=== PATIENT | female | born 1970 | race Caucasian/White ===

== ENCOUNTER → 2020-07-17 08:14 | Outpatient (CLI) | payer BC, SELFPAY ==
--- NOTE | ~2020-07-17 | MR_ITS ---
EXAMINATION: MR cervical spine wo con EXAM DATE: 07/17/2020 09:10 INDICATION: Left hand paresthesia, neck pain. TECHNIQUE: Multi-sequential, multiplanar MR images of the cervical spine were obtained without contra st. Axial T2, axial T2 MERGE sequence. Sagittal T1, T2, T2 fat saturation images also obtained. Th ere is no prior study for comparison. FINDINGS: There is mild disc disease C4-7. The vertebral bodies are aligned in the AP dimension. The spinal cord signal intensity and intrinsic morphology is normal. Cervicomedullary junction is normal in appearance. There are no suspicious marrow signal abnormalities. Paraspinal soft tissue is unrema rkable. Level by level evaluation: C2-C3: Disc does not extend beyond the endplate margin. Uncovertebral joint arthropathy: Mild left. Facet joint arthropathy: Mild bilateral. Neural foraminal stenosis: No stenosis. Central canal stenosis: No stenosis. C3-C4: Disc does not extend beyond the endplate margin. Uncovertebral joint arthropathy: Mild bilateral. Facet joint arthropathy: Mild to moderate bilateral. Neural foraminal stenosis: No stenosis. Central canal stenosis: No stenosis. C4-C5: There is a minimal diffuse disc bulge. Uncovertebral joint arthropathy: Mild to moderate left, mild right. Facet joint arthropathy: Mild to moderate left, mild right. Neural foraminal stenosis: Mild left. Central canal stenosis: No stenosis. C5-C6: There is a mild diffuse disc bulge. Uncovertebral joint arthropathy: Mild to moderate bilateral. Facet joint arthropathy: Mild to moderate bilateral. Neural foraminal stenosis: Mild to moderate right, mild left. Central canal stenosis: Mild. C6-C7: There is a mild diffuse disc bulge. Uncovertebral joint arthropathy: Moderate bilateral. Facet joint arthropathy: Mild to moderate bilateral. Neural foraminal stenosis: Moderate bilateral. Central canal stenosis: Mild. C7-T1: Disc does not extend beyond the endplate margin. Uncovertebral joint arthropathy: None. Facet joint arthropathy: Mild bilateral. Neural foraminal stenosis: No stenosis. Central canal stenosis: No stenosis. IMPRESSION: 1. C6-7 moderate bilateral neural foraminal stenosis. 2. Less spondylosis other levels. Reviewed, dictated and finalized at location B. P 3 ARMAMENT/ORDNANCE IMA TECHNICIAN
== END ==
PROVIDERS: PCP Family Medicine Adolescent Medicine; Visit Provider Physician Assistant
DX: R20.2 Paresthesia of skin (principal); M54.2 Cervicalgia
CPT/HCPCS: 72141

== ENCOUNTER 2021-06-05 21:23 | Observation (INO) | payer BC, SELFPAY ==
[2021-06-05] VITALS (7 sets, daily range): BP systolic 161–191; BP diastolic 93–159; PULSE 52–60; RESP 12–13; TEMP 36.7; O2SAT 99–100
--- NOTE | ~2021-06-05 | CT_ITS ---
EXAMINATION: CT brain wo con DATE: 06/06/2021 01:41 INDICATION: A couple syncopal episodes and fall. TECHNIQUE: Computed tomography (CT) of the head was performed without intravenous contrast. Sagittal and coronal reconstructions were performed. The mA was adjusted according to patient size. Iterative reconstruction technique was employed. The dose-length product was 605.33 mGy-cm. COMPARISON: None FINDINGS: No fracture. No acute intracranial hemorrhage, acute infarction or abnormal extra axial fluid collect ion. Ventricles are normal and symmetric. No mass/mass effect. The orbits, paranasal sinuses and mast oid air cells are normal. IMPRESSION: 1. Normal head CT. No fracture or acute intracranial process. Reviewed, dictated and finalized at location A. NG TEACHER
--- NOTE | ~2021-06-05 | XR_ITS ---
EXAMINATION: XR chest 2V DATE: 06/06/2021 02:32 INDICATION: Syncope. TECHNIQUE: frontal and lateral views of the chest were obtained. COMPARISON: None FINDINGS: The lungs are clear with no focal airspace opacities, pulmonary edema, pleural effusion or pneumothor ax. The cardiomediastinal silhouette is normal. Mild thoracic spondylosis. IMPRESSION: 1. No acute cardiopulmonary disease. Reviewed, dictated and finalized at location A. CTION PREVENTION SPECIALIST
--- NOTE | 2021-06-05 21:26 | ECG_ITS ---
Measurements Intervals [place] Rate: 55 P: 38 ND: 167 QRS: 76 QRSD: 85 T: 60 QT: 433 QTc: 417 Interpretive Statements SINUS BRADYCARDIA WITH SINUS ARRHYTHMIA BASELINE WANDER- V4 BORDERLINE ECG Electronically Signed On 06-06-2021 7:00:20 ENERGY MANAGER by Desean Shaw D.O.
--- NOTE | 2021-06-05 21:51 | ED.SYNCOPE ---
HPI - Syncope General Chief Complaint: Syncope Stated Complaint: syncopal episodes Time Seen by Provider: 06/05/21 21:32 Source: patient History of Present Illness HPI narrative: Patient passed out this evening. Reports she was putting soup into another container when she felt lightheaded and dizzy her with her so that she passed out and lowered her to the ground. EMS was contacted and patient initially was going to refuse transportation however symptoms returned She denies any chest pain or shortness of breath prior to the event. She does report feeling warm and nauseated. Is reports she did not strike her head on anything. Reports she feels a little bit nausea now but otherwise is feeling well. She denies any recent fevers, cough, congestion. She denies prior cardiac history she denies any recent hospitalizations prior history of DVTs, recent trauma. She reports she is an avid bike rider and has had noted any issues with physical activity. Related Data Allergies Allergy/AdvReac Type Severity Reaction Status Date / Time cefaclor Allergy Severe ITCHING Verified 06/05/21 21:34 Cephalosporins Allergy Mild Hives Verified 06/05/21 21:34 Sulfa (Sulfonamide Allergy Mild Hives Verified 06/05/21 21:34 Antibiotics) Review of Systems Review of Systems: CONSTITUTIONAL: Denies fever, chills, or sweats. EYES: Denies visual changes, redness, or discharge. ENT: Denies rhinorrhea, congestion, sore throat, or otalgia. CARDIOVASCULAR: Denies chest pain, palpitations, or edema. RESPIRATORY: Denies cough or dyspnea. GASTROINTESTINAL: Denies abdominal pain, vomiting, or diarrhea. GENITOURINARY: Denies dysuria or hematuria. SKIN: Denies rash or itching. MUSCULOSKELETAL: Denies back pain, joint pain, or myalgia. NEUROLOGIC: Denies headache, numbness, dizziness, or weakness. PSYCHIATRIC: Denies anxiety or depression. All systems reviewed & are unremarkable except as noted in HPI and below PMFSH Past Medical History Medical History (Updated 06/06/21 @ 02:14 by Lucas Mcfarland MD) Patient denies significant medical history Social History Social History (Updated 06/05/21 @ 21:53 by Lucas Mcfarland MD) Alcohol intake: current Exam Narrative: GENERAL: Well-appearing, well-nourished, and in no acute distress. HEAD: Normocephalic, atraumatic. EYES: PERRLA and EOMI. ENT: Nares clear, no rhinorrhea or epistaxis. Mucous membranes moist. NECK: Supple. No masses. No JVD CHEST: Clear to auscultation. No respiratory distress. No wheezes rales or rhonchi HEART: Regular rate and rhythm. No murmur heard. Normal peripheral pulses. ABDOMEN: Soft, nontender, nondistended, normal active bowel sounds. EXTREMITIES: Normal range of motion. No edema. SKIN: Warm, dry, no rash. NEURO: Cranial nerves II through XII are intact patient has 5 out of 5 strength in all extremities sensation intact to light touch in all extremities alert and oriented x3. PSYCH: Normal mood and affect. Course Reevaluation(s) Reevaluation #1: Patient is resting comfortably results reviewed with patient. Due to elevated troponin she was admitted for further monitoring. Case cussed with hospitalist team and cardiology team. Date: 06/06/21 Time: 02:00 Vital Signs Vital signs: Vital Signs Temperature 36.7 C 06/05/21 21:26 Pulse Rate 58 L 06/05/21 21:26 Respiratory Rate 12 06/05/21 21:26 Blood Pressure 177/100 H 06/05/21 21:26 Pulse Oximetry 99 06/05/21 21:26 Temperature 36.7 C 06/05/21 21:26 Pulse Rate 47 L 06/06/21 06:45 Respiratory Rate 11 L 06/06/21 06:45 Blood Pressure 158/88 H 06/06/21 06:45 Pulse Oximetry 96 06/06/21 06:45 MDM - Syncope MDM Narrative Medical decision making narrative: H&P as above, vss, pt looks clinically well, exam reassuring no focal neurological deficits cardiac exam was unremarkable, labs initially reassuring delta troponin was elevated, img unremarkable, additional labs/img considered. Symptoms r
[2021-06-05 21:59] LABS: Basophils Absolute Auto 0.1 K/mm3 (0.0-0.1); Basophils Percent Auto 0.9 % (0.2-1.2); Eosinophils Absolute Auto 0.2 K/mm3 (0-0.3); Eosinophils Percent Auto 3.3 % (0-4.4); Hematocrit 41.8 % (37.0-47.0); Hemoglobin 14.7 g/dL (12.0-15.0); Immature Granulocyte Absolute 0.02 K/mm3 (0.00-0.031); Immature Granulocyte Percent A 0.4 % (0-0.5); Lymphocytes Absolute Auto 2.08 K/mm3 (0.9-3.2); Lymphocytes Percent Auto 37.6 % (18.3-44.2); Mean Corpuscular HGB Conc 35.2 g/dl (32-36); Mean Corpuscular Hemoglobin 32.2 pg (26-34); Mean Corpuscular Volume 91.5 fl (80-100); Mean Platelet Volume 9.5 fl (7.4-10.4); Monocytes Absolute Auto 0.5 K/mm3 (0.1-0.6); Monocytes Percent Auto 8.9 % (2.6-8.5); Neutrophils Absolute Auto 2.7 K/mm3 (1.3-6.7); Neutrophils Percent Auto 48.9 % (45.5-73.1); Platelet Count Result 185 k/mm3 (150-375); Red Blood Count 4.57 M/mm3 (4.2-5.4); Red Cell Distribution Width 11.9 % (11.5-14.5); White Blood Count 5.5 K/mm3 (4.5-10.0)
[2021-06-05 22:11] LABS: Alanine Aminotransferase 22 U/L (4-35); Albumin Level 4.5 g/dL (3.5-5.1); Alkaline Phosphatase 71 U/L (38-126); Anion Gap 6 mmol/L (8-16); Aspartate Amino Transferase 33 U/L (14-36); Bilirubin,Total 0.5 mg/dL (0.2-1.3); Blood Urea Nitrogen 19 mg/dL (7-17); Calcium 9.7 mg/dL (8.4-10.2); Carbon Dioxide 32 mmol/L (22-30); Chloride 97 mmol/L (98-107); Estimated CRCL calculation 83 ml/min; Estimated Glomerular Filt Rate > 60; Glucose 106 mg/dL (65-110); Potassium 3.9 mmol/L (3.4-5.0); Sodium 135 mmol/L (137-145)
[2021-06-05 22:23] LABS: Troponin I < 0.012 ng/mL (0.000-0.034)
[2021-06-05] MEDS: SODIUM CHLORIDE 0.9% IV 1,000 ML 999 ML IV CONT (23:04)
[2021-06-05] MEDS: ONDANSETRON INJ 4 MG/2 ML VIAL IV PUSH (23:52)
[2021-06-06] VITALS (60 sets, daily range): BP systolic 129–192; BP diastolic 77–109; PULSE 38–65; RESP 9–20; O2SAT 94–100; BMI 58.5
--- NOTE | 2021-06-06 | ECHO_ITS ---
Patient Info Name: Ammy Hastings Age: 50 years : 1970 Gender: Female Ht: 70 in Wt: 205 lbs BSA: 2.17 m2 HR: 49 bpm BP: 158 / 88 mmHg Heart Rhythm: Sinus Rhythm, Bradycardia Technical Quality: Good Exam Date: 06/06/2021 8:57 AM Exam Location: [facility] Pulmonary Exam Room: ED 9 Patient Status: Outpatient Admit Date: 06/06/2021 Staff Ordering Physician: Lucas Mcfarland MD Manager Cosmetic: Faiza Belle RDCS Attending Provider: Susan Wilkinson PA-C Referring Physician: Bartolo ELI; Exam Type: CA echo doppler color flow Study Info Indications - SYNCOPE Complete two-dimensional, color flow and Doppler transthoracic echocardiogram is performed. Summary 1. Complete two-dimensional, color flow and Doppler transthoracic echocardiogram is performed. 2. Left ventricular chamber dimension is normal. 3. Left ventricular systolic function is normal, estimated at 65-70%. 4. There is no increased left ventricular wall thickness. 5. The left ventricular diastolic function is normal. 6. Right ventricular chamber dimension is normal. 7. Right ventricular systolic function is normal. 8. Borderline mild right ventricular hypertrophy. 9. Right atrial chamber dimension is mildly enlarged. 10. Left atrial chamber dimension is mildly enlarged. 11. There is trace tricuspid valve regurgitation. 12. No pulmonary hypertension, estimated pulmonary arterial systolic pressure is 27 mmHg. Left Ventricle Left ventricular chamber dimension is normal. Left ventricular systolic function is normal, estimated at 65-70%. There is no increased left ventricular wall thickness. The left ventricular diastolic function is normal. Right Ventricle Right ventricular chamber dimension is normal. Right ventricular systolic function is normal. Borderline mild right ventricular hypertrophy. Left Atria Left atrial chamber dimension is mildly enlarged. Right Atria Right atrial chamber dimension is mildly enlarged. Aortic Valve The aortic valve is not well visualized. There is no aortic valve stenosis. There is no aortic valve regurgitation. Pulmonic Valve The pulmonic valve is not well visualized. Mitral Valve The mitral valve has normal leaflets. There is trace mitral valve regurgitation. Tricuspid Valve The tricuspid valve leaflets are normal. There is trace tricuspid valve regurgitation. No pulmonary hypertension, estimated pulmonary arterial systolic pressure is 27 mmHg. Pericardium/Pleural The pericardium appears normal. There is no pericardial effusion. Inferior Vena Cava Normal inferior vena cava with <50% collapse upon inspiration consistent with elevated right atrial pressure, 10 mmHg. Aorta The aortic root size at the sinus of Valsalva is normal. Left Ventricular Outflow Tract Name Value Normal LVOT 2D LVOT Diameter 2.0 cm LVOT Doppler LVOT Peak Gradient 10 mmHg LVOT Mean Gradient 5 mmHg LVOT VTI 35 cm LVOT VTI/AV VTI Ratio 0.9 LVOT Stroke Volume
[2021-06-06 01:13] LABS: Troponin I 0.048 ng/mL (0.000-0.034)
[2021-06-06 02:40] LABS: Partial Thromboplastin Time 29.7 SECONDS (22.3-36.8); Prothrombin Time 12.6 Seconds (11.1-14.7)
--- NOTE | 2021-06-06 03:17 | ECG_ITS ---
Measurements Intervals [place] Rate: 43 P: 1 WA: 183 QRS: 98 QRSD: 86 T: 53 QT: 472 QTc: 403 Interpretive Statements SINUS BRADYCARDIA WITH SINUS ARRHYTHMIA BASELINE ARTIFACT- II, III, AVR, AVF, V3-V6 BORDERLINE ECG Electronically Signed On 06-06-2021 7:02:23 STEAM PRESS TENDER by Desean Shaw D.O.
--- NOTE | 2021-06-06 03:17 | PC.NURSE ---
Pt reports new onset chest tightness rated a 2/10 for the past hour. EDP Dr Mcfarland made aware, EKG obtained per VORB.
--- NOTE | 2021-06-06 03:48 | PC.NURSE ---
Spoke to Dr Braun - hospitalist at this time to report chest tightness and repeat EKG. Discussed POC/medications - states she will put med orders in.
[2021-06-06] MEDS: ASPIRIN 81 MG CHEWABLE TABLET 324 MG PO (03:57)
[2021-06-06] MEDS: NITROGLYCERIN SL 0.4 MG TABLET SUBLINGUAL (03:58)
--- NOTE | 2021-06-06 03:58 | PC.NURSE ---
Pt given 1 SL nitro tab for chest tightness rated a 1/10 currently per hospitalist LALO.
[2021-06-06] MEDS: lisinopriL 20 MG TABLET PO ×2 (04:02→09:48)
--- NOTE | 2021-06-06 04:03 | PC.NURSE ---
Pt states she has no chest tightness following 1 SL nitro tab.
[2021-06-06 04:21] LABS: Troponin I 0.065 ng/mL (0.000-0.034)
--- NOTE | 2021-06-06 07:27 | PC.NURSE ---
ordered pt breakfast tray
[2021-06-06 07:30] LABS: Troponin I 0.058 ng/mL (0.000-0.034)
--- NOTE | 2021-06-06 09:57 | PC.NURSE ---
Dr. Last aware of pt being boarded in the ED, and need for consult.
[2021-06-06 10:35] LABS: Basophils Absolute Auto 0.1 K/mm3 (0.0-0.1); Basophils Percent Auto 0.9 % (0.2-1.2); Eosinophils Absolute Auto 0.1 K/mm3 (0-0.3); Eosinophils Percent Auto 1.6 % (0-4.4); Hematocrit 41.3 % (37.0-47.0); Hemoglobin 14.3 g/dL (12.0-15.0); Immature Granulocyte Absolute 0.01 K/mm3 (0.00-0.031); Immature Granulocyte Percent A 0.2 % (0-0.5); Lymphocytes Absolute Auto 1.48 K/mm3 (0.9-3.2); Lymphocytes Percent Auto 27.1 % (18.3-44.2); Mean Corpuscular HGB Conc 34.6 g/dl (32-36); Mean Corpuscular Hemoglobin 32.4 pg (26-34); Mean Corpuscular Volume 93.4 fl (80-100); Mean Platelet Volume 10.1 fl (7.4-10.4); Monocytes Absolute Auto 0.6 K/mm3 (0.1-0.6); Monocytes Percent Auto 11.3 % (2.6-8.5); Neutrophils Absolute Auto 3.2 K/mm3 (1.3-6.7); Neutrophils Percent Auto 58.9 % (45.5-73.1); Platelet Count Result 189 k/mm3 (150-375); Red Blood Count 4.42 M/mm3 (4.2-5.4); Red Cell Distribution Width 11.9 % (11.5-14.5); White Blood Count 5.5 K/mm3 (4.5-10.0)
[2021-06-06 10:41] LABS: Alanine Aminotransferase 20 U/L (4-35); Alkaline Phosphatase 65 U/L (38-126); Anion Gap 6 mmol/L (8-16); Aspartate Amino Transferase 30 U/L (14-36); Bilirubin,Total 0.5 mg/dL (0.2-1.3); Blood Urea Nitrogen 17 mg/dL (7-17); Calcium 9.3 mg/dL (8.4-10.2); Carbon Dioxide 27 mmol/L (22-30); Chloride 105 mmol/L (98-107); Estimated CRCL calculation 83 ml/min; Estimated Glomerular Filt Rate > 60; Glucose 89 mg/dL (65-110); Potassium 4.1 mmol/L (3.4-5.0); Sodium 138 mmol/L (137-145)
--- NOTE | 2021-06-06 11:46 | PM.CNCAR ---
Assessment and Plan Assessment and plan (1) Syncope: Qualifiers: Syncope type: unspecified Qualified Code(s): R55 - Syncope and collapse Code(s): R55 - Syncope and collapse Status: Acute Assessment and Plan: Symptoms suggestive of vasovagal/neurocardiogenic etiology. Description as recalled per EMS with heart rate dropping to 32 beats per minute after patient stood up then suffering a brief syncopal episode once again suggestive of possible cardioinhibitory etiology. There is no documentation of orthostasis or hypotension. Patient relates a chronic history of bradycardia as she is an avid endurance cyclist. -Avoid dehydration and AV helder blocking agents. Precise contribution to initial syncopal episode unclear. Cannot entirely exclude transient asystole or severe bradycardia contribution as is suggested with available documentation. As asystole has not yet been documented is difficult to assess whether consideration for permanent pacemaker implantation may be warranted. Given elevated troponin and lack of clear anginal symptoms or ischemic EKG changes this points to a significant hemodynamic change which resulted in a loss of consciousness. My opinion it is far less likely she had an acute ischemic event profound enough to result in loss of consciousness transiently without other suggestive symptoms or electrocardiographic features. Furthermore, LV systolic function was normal without wall motion abnormalities. -given the degree of hypertension antihypertensive therapy is warranted. However, this is precarious given her presentation with syncope and caution should be exercised. She must avoid dehydration. She missed rise slowly from seated position to avoid risk for falls and injuries. Avoid alcohol, excessive caffeine. -I recommended an ischemic evaluation which may be performed on an outpatient basis given family history of premature atherosclerosis. -30 day application integration architect to assess for pathologic bradycardia, sinus arrest/asystole in association with syncope. Loop recorder implantation may be considered etiology remains left clear. We also discussed tilt-table testing as an outpatient for further clarification in this regard. We discussed potential serious complications from a syncope given circumstances. I have advised her to minimize driving as much as possible although without an absolute restriction. I would recommend she not return to work on Tuesday to ensure further stabilization over the weekend. She agrees. (2) Elevated troponin: Code(s): R77.8 - Other specified abnormalities of plasma proteins Status: Acute Assessment and Plan: Mild troponin elevation with a fairly rapid rise and fall without ischemic EKG changes. Although she has very minimal chest tightness she has been very active riding a bike without any limitation or change in activity tolerance or symptoms suggestive of angina. I believe this is a type 2 infarction not secondary to acute coronary syndrome and/or plaque rupture. (3) Hypertension: Code(s): I10 - Essential (primary) hypertension Status: Acute Assessment and Plan: Uncontrolled without evidence of orthostasis. Judicious improvement in her blood pressure close observation of tolerance prior to discharge would be recommended. Avoid AV helder blocking agents. (4) Bradycardia: Code(s): R00.1 - Bradycardia, unspecified Status: Acute Assessment and Plan: Sinus bradycardia attributed to her cardiovascular conditioning as an avid endurance cyclist. However, given her syncope suggestive of vasovagal/neurocardiogenic etiology and evidence more specifically supportive of a cardioinhibitory contribution this may in fact be somewhat problematic. Continue telemetry while hospitalized. Outpatient 30 day application integration architect. Patient agrees. Further recommendation to follow. Patient denies symptoms or evidence of obstructive sleep apnea. Ap
--- NOTE | 2021-06-06 16:08 | PM.IMHP ---
H&P: HPI History of Present Illness Date/Time: 06/06/21 16:08 this is a 50-year-old female patient who typically has a heart rate in the 40s and is typically asymptomatic is she is an avid bike rider and is very physically active. The patient stated that she had made some soup and she went to get a bolt but the soup in and she felt very lightheaded, dizzy and nauseated and felt like she was going to pass out. The patient stated that her caught her and lowered her to the ground. She denies hitting her head. When the patient awoke she noticed that her was on the phone with EMS. Initially the patient was going to refuse EMS. She denies any fever chills cough or congestion. She denies any cardiac history. Head CT was read as normal head CT no fracture acute intracranial process. No acute cardiopulmonary disease. The patient's heart rate has been in the upper 40s and lower 50s. Cardiology has been consulted. Patient only has a history of hypertension. I spoke with Dr. Guzman and he recommended that the patient stay at least 1 more night. Patient will not be able to get a heart monitor today and will need to wait for her 30 day heart monitor for tomorrow. Patient will also need a apnea link tonight however she denies any daytime sleepiness or excessive snoring. She is not overly obese either. She does not Fit the normal criteria of for somebody that would have obstructive sleep apnea however cardiology recommended that she have the apnea link study tonight. EKG was read as sinus Huan with sinus arrhythmia The patient's troponin initially undetectable and then it is 0.065 and 0.058 respectively. The patient is being admitted for observation status on the date of service of 06/06/2021 Chief Complaint: Syncopal episode Review of Systems Review of Systems: All systems reviewed & are unremarkable except as noted in HPI and below Constitutional: Constitutional: Reports as per HPI and Reports no additional constitutional complaints Eyes: Eyes: Reports as per HPI and Reports no additional eye complaints ENT: Reports system reviewed and no additional complaints, except as documented and Reports Normal hearing present Cardiovascular: Cardiovascular: Reports no additional cardiovascular complaints Respiratory: Respiratory: Reports no additional respiratory complaints and Reports no additional respiratory complaints Gastrointestinal: Gastrointestinal: Reports as per HPI and Reports no additional gastrointestinal complaints Musculoskeletal: Musculoskeletal: Reports no additional musculoskeletal complaints Integumentary/Breasts: Skin/Breast: Reports system reviewed and no additional complaints, except as docu and Reports as per HPI Neurologic: Reports system reviewed and no additional complaints, except as documented, Reports as per HPI and Reports Normal hearing present Psychiatric: Psychiatric: Reports no additional psychiatric complaints and Reports as per HPI Endocrine: Endocrine: Reports no additional endocrine complaints Hematologic/Lymphatic: Hematologic/Lymphatic: Reports no additional hematologic/lymphatic complaints Allergic/Immunologic: Allergic/Immunologic: Reports no additional allergic/immunologic complaints FOR[facility]LY [facility], [facility] Past Medical History Medical History Bradycardia Hypertension Patient denies significant medical history Surgical History Surgical History (Updated 06/06/21 @ 16:30 by Keyonna Akins NP) History of arthroscopy of left knee S/P ORIF (open reduction internal fixation) fracture Right wrist Family History Family History (Updated 06/06/21 @ 16:30 by Keyonna Akins NP) Mother Hypertension Father Hypertension Acute myocardial infarction Social History Social History (Updated 06/06/21 @ 16:34 by Keyonna Akins NP) Social History: The patient is and lives with her . She has 3 sons. One of the sons lives with her.
--- NOTE | 2021-06-06 23:34 | PC.NURSE ---
Report received from KACI Maloney. Assumed care of patient at this time.
[2021-06-07] VITALS (36 sets, daily range): BP systolic 129–154; BP diastolic 76–100; PULSE 35–66; RESP 9–16; TEMP 36.7–36.9; O2SAT 96–100
--- NOTE | 2021-06-07 00:09 | PC.NURSE ---
This nurse contacted respiratory, spoke with Jennifer in regards to scheduled sleep study. Jennifer stated that they do not normally do them in the ED and it is past time or too late to do it now. This nurse informed her that the patient is boarded and may be in the ED for a while waiting for a room and the patient does need that done. Jennifer stated that she will have one done tomorrow. brick machine operator notified.
--- NOTE | 2021-06-07 00:30 | PC.NURSE ---
Respiratory in room at this time to start patient's sleep study.
--- NOTE | 2021-06-07 05:26 | PC.NURSE ---
Respiratory finished patients sleep study. Patient resting comfortably on stretcher. Call light within reach.
--- NOTE | 2021-06-07 08:04 | PC.NURSE ---
Per Dr. Last, pt may be d/c if ok with hospitalist. Spoke with Susan Juárez, she will notify Dr. Mcnamara.
--- NOTE | 2021-06-07 08:12 | PM.PNCARD ---
Progress Note: A&P Assessment and Plan (1) Syncope: Qualifiers: Syncope type: unspecified Qualified Code(s): R55 - Syncope and collapse Code(s): R55 - Syncope and collapse Status: Acute Assessment and Plan: Symptoms suggestive of vasovagal/neurocardiogenic etiology. Description as recalled per EMS with heart rate dropping to 32 beats per minute after patient stood up then suffering a brief syncopal episode once again suggestive of possible cardioinhibitory etiology. There is no documentation of orthostasis or hypotension. Patient relates a chronic history of bradycardia as she is an avid endurance cyclist. -Avoid dehydration and AV helder blocking agents. Precise contribution to initial syncopal episode unclear. Cannot entirely exclude transient asystole or severe bradycardia contribution as is suggested with available documentation. As asystole has not yet been documented is difficult to assess whether consideration for permanent pacemaker implantation may be warranted. Given elevated troponin and lack of clear anginal symptoms or ischemic EKG changes this points to a significant hemodynamic change which resulted in a loss of consciousness. -Ischemic eval as outpatient. -I recommended an ischemic evaluation which may be performed on an outpatient basis given family history of premature atherosclerosis. -30 day ekg monitor to assess for pathologic bradycardia, sinus arrest/asystole in association with syncope. Loop recorder implantation may be considered etiology remains left clear. -stable for discharge from cardiac perspective. Follow-up with me in 1 month, obtain 30 day ekg monitor in the office tomorrow morning. Call the office to obtain. Will Set up stress follow-up at that. Patient verbalized understanding and agreed with plan of care. (2) Elevated troponin: Code(s): R77.8 - Other specified abnormalities of plasma proteins Status: Acute Assessment and Plan: Mild troponin elevation with a fairly rapid rise and fall without ischemic EKG changes. No chest pain. Stable. Check lipid panel. Aspirin 81 mg daily not unreasonable discharge until stress test obtained. May discharge today on aspirin (3) Hypertension: Code(s): I10 - Essential (primary) hypertension Status: Acute Assessment and Plan: Uncontrolled without evidence of orthostasis. Judicious improvement in her blood pressure close observation of tolerance prior to discharge would be recommended. Avoid AV helder blocking agents. Lisinopril 20 mg daily tolerating well thus far. May actually be able to reduce to 10 mg daily as an outpatient. Advised to monitor BP very closely and notify the office with recurrent near-syncope, syncope, dizziness, and or relative hypotension or intolerance. Patient states she tolerated lisinopril well without any problems previously. (4) Bradycardia: Code(s): R00.1 - Bradycardia, unspecified Status: Acute Assessment and Plan: Stable no prolonged pauses or high-grade AV blocks on telemetry. Avoid AV helder blocking agents. Subjective Date/time seen: Date of service: 06/07/21 08:12 Follow-up for syncope, elevated troponin Patient feeling well this morning. Minimal headache, no nausea, dizziness. No chest pain. No new issues overnight. BP much better controlled. Tolerating lisinopril. Review of Systems Review of Systems: All systems reviewed & are unremarkable except as noted in HPI and below Constitutional: Constitutional: Reports as per HPI, Reports no additional constitutional complaints, Denies fatigue and Denies weakness Eyes: Eyes: Reports as per HPI and Reports no additional eye complaints ENT: Reports system reviewed and no additional complaints, except as documented and Reports as per HPI Cardiovascular: Cardiovascular: Reports as per HPI, Reports no additional cardiovascular complaints, Denies chest pain, Denies leg edema, De
--- NOTE | 2021-06-07 09:08 | PM.DS ---
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 The patient had a syncopal episode and was seen by Cardiology. Patient is asymptomatic at this time. (2) Hypertension: Code(s): I10 - Essential (primary) hypertension Status: Acute Assessment and Plan: Patient is newly diagnosed with hypertension; she is now controlled with p.o. lisinopril. This is a newly treated hypertension. Target blood pressure 130/80 in the outpatient setting over the 1st the next few weeks. (3) Syncope: Qualifiers: Syncope type: unspecified Qualified Code(s): R55 - Syncope and collapse Code(s): R55 - Syncope and collapse Status: Acute Assessment and Plan: Bradycardia is very likely secondary to vasovagal reaction. The patient is stable, afebrile and seemingly healthy at baseline. Symptoms suggestive of vasovagal/neurocardiogenic etiology. Per EMS description, with an episode of heart rate dropping to 32 beats per minute after patient stood up then suffering a brief syncopal episode once again suggestive of possible cardioinhibitory etiology. There is no documentation of orthostasis or hypotension. Patient reports a chronic history of bradycardia as she is an avid endurance cyclist. Avoid dehydration and AV helder blocking agents. Precise contribution to initial syncopal episode unclear. Cannot entirely exclude transient asystole or severe bradycardia contribution as is suggested with available documentation. As asystole has not yet been documented is difficult to assess whether consideration for permanent pacemaker implantation may be warranted. Given elevated troponin and lack of clear anginal symptoms or ischemic EKG changes this points to a significant hemodynamic change which resulted in a loss of consciousness. My opinion it is far less likely she had an acute ischemic event profound enough to result in loss of consciousness transiently without other suggestive symptoms or electrocardiographic features. Furthermore, LV systolic function was normal without wall motion abnormalities. -given the degree of hypertension, and the fact that patient already had an active lifestyle, antihypertensive therapy is warranted. However, given her presentation with syncope and caution should be exercised. She must avoid dehydration. She must rise slowly from seated position to avoid risk for falls and injuries. Avoid alcohol, excessive caffeine. -I recommended an ischemic evaluation which may be performed on an outpatient basis given family history of premature atherosclerosis. -30 day threat monitoring analyst to assess for pathologic bradycardia, sinus arrest/asystole in association with syncope. L patient was informed regarding potential serious complications from a syncope given circumstances. She was instructed to minimize driving as much as possible although without an absolute restriction. I would recommend she not return to work on Tuesday to ensure further stabilization over the weekend. She malinda a very active lifestyle. Based on her episode of bradycardia, and a family history of premature atherosclerosis an ischemic workup is recommended. Patient will were where an implantable loop for recorder for 30 days (4) Elevated troponin: Code(s): R77.8 - Other specified abnormalities of plasma proteins Status: Acute Assessment and Plan: The patient was evaluated by Cardiology she had a mild elevation of troponin. Currently no evidence of acute coronary syndrome; however given Darrell family history of premature atherosclerosis and ischemic workup is warranted at this time. DS: Summary Hospital Course Reason for hospitalization: Syncopal episode Hospital Course:
[2021-06-07 09:13] LABS: Cholesterol 178 mg/dL (0-200); HDL Direct 81 mg/dL; Triglycerides 54 mg/dL (<150)
[2021-06-07 09:24] LABS: LDL Cholesterol Direct 75 mg/dL
[2021-06-07] MEDS: lisinopriL 20 MG TABLET PO (11:42)
== END 2021-06-07 11:48 | disposition home or self-care (01) ==
LOC: ANHED 06-06 02:14 → ANHIMU 06-06 07:40 → ANH2MED 06-08 13:30
PROVIDERS: Internal Medicine Cardiovascular Disease; Physician Assistant; Admitting Provider Internal Medicine; Emergency Provider Emergency Medicine; PCP Family Medicine Adolescent Medicine; Visit Provider Internal Medicine
DX: R00.1 Bradycardia, unspecified (principal); R55 Syncope and collapse; I10 Essential (primary) hypertension; R77.8 Other specified abnormalities of plasma proteins
CPT/HCPCS: 36415; 70450; 71046; 80053; 80061; 81025; 84484; 85025; 85610; 85730; 93005; 93306; 94762; 96361; 96374; 99285; A9270; G0378; J2405; J7030